=== PATIENT | male | born 1995 | race Two or more races ===

== ENCOUNTER 2019-10-22 02:06 | Emergency (ER) | payer SELFPAY ==
[~2019-10-22] VITALS: Ht 175.3 cm; Wt 63.5 kg
== END 2019-10-22 04:46 ==
LOC: ER 02:06
DX: S00.03XA Contusion of scalp, initial encounter (principal); R51 Headache; V89.2XXA Person injured in unspecified motor-vehicle accident, traffic, initial encounter; Y93.I9 Activity, other involving external motion; Y92.488 Other paved roadways as the place of occurrence of the external cause; Y99.8 Other external cause status
CPT/HCPCS: 70450; 72125

== ENCOUNTER 2020-09-15 00:02 | Emergency (ER) | payer SELFPAY ==
[~2020-09-15] VITALS: Ht 172.7 cm; Wt 99.8 kg
[2020-09-15] MEDS ORDERED: ONDANSETRON HCL 4 MG/2 ML VIAL IV ONE (01:45)
[2020-09-15] MEDS ORDERED: SODIUM CHLORIDE 0.9% 1,000 ML IV ONE (02:00)
[2020-09-15] MEDS ORDERED: HALOPERIDOL LACTATE 5 MG/ML INJ VIAL ONE (02:05)
[2020-09-15] MEDS ORDERED: diphenhdrAMINE HCL 50 MG/1 ML VL ONE (02:05)
[2020-09-15] MEDS ORDERED: LORazepam 2MG/ML-1ML VIAL ONE (02:06)
[2020-09-15 02:12] LABS: Amphetamine Screen, Urine NEGATIVE (NEGATIVE); Barbiturate Scree,Urine NEGATIVE (NEGATIVE); Benzodiazephine Screen, Urine NEGATIVE (NEGATIVE); Cannabinoid Screen, Urine POSITIVE (NEGATIVE); Cocaine Screen, Urine NEGATIVE (NEGATIVE); Opiate Scree,Urine NEGATIVE (NEGATIVE); Phencyclidine Screen, Urine NEGATIVE (NEGATIVE)
[2020-09-15] MEDS ORDERED: HALOPERIDOL LACTATE 5 MG/ML INJ VIAL IM ONE (02:15)
[2020-09-15] MEDS ORDERED: diphenhdrAMINE HCL 50 MG/1 ML VL IM ONE (02:15)
[2020-09-15] MEDS ORDERED: LORazepam 2MG/ML-1ML VIAL IM ONE (02:15)
[2020-09-15 02:27] LABS: Basophils # (auto) 0.1 10 ^3/uL (0-0.2); Basophils % (auto) 0.8 % (0.0-2.0); Eosinophils # (auto) 0 10 ^3/uL (0-0.8); Hematocrit 49.5 % (41.0-53.0); Hemoglobin 16.9 g/dL (13.5-17.5); Lymphocytes # (auto) 2.8 10 ^3/uL (0.4-5.4); Lymphocytes % (auto) 18.6 % (10.0-50.0); Mean Corpuscular Hemoglobin 30.2 pg (28.0-32.0); Mean Corpuscular Hgb Conc. 34.1 g/dL (32.0-36.0); Mean Corpuscular Volume 88.6 fL (80.0-100.0); Monocytes # (auto) 0.5 10 ^3/uL (0-1.3); Monocytes % (auto) 3.2 % (0.0-12.0); Neutrophils # (auto) 11.6 10 ^3/uL (1.6-8.6); Neutrophils % (auto) 77.4 % (37.0-80.0); Platelet Count (auto) 397 10^3/uL (140-450); Red Blood Cells 5.59 10^6/uL (4.5-5.90)
[2020-09-15 02:47] LABS: Albumin 4.3 g/dL (3.4-5.0); Calcium 8.3 mg/dL (8.5-10.1); Magnesium 2.6 mg/dL (1.6-2.6); Potassium 3.4 mmol/L (3.5-5.1)
[2020-09-15 02:52] LABS: Bilirubin, Total 0.6 mg/dL (0.2-1.0); Total Protein 8.6 g/dL (6.4-8.2)
[2020-09-15 03:03] LABS: Blood Alcohol 414.2 mg/dL (0-5)
[2020-09-15 10:35] VITALS: BP 116/65
== END 2020-09-15 12:20 | disposition home or self-care (01) ==
LOC: EDBD 00:02 → ER 00:04
DX: F10.920 Alcohol use, unspecified with intoxication, uncomplicated (principal)
CPT/HCPCS: 36415; 80053; 80307; 80320; 83735; 85025; 93005; 96361; 96372; 96374; 99285; J1200; J1630; J2060; J2405; J7030; 96375